=== PATIENT | female | born 1990 | race Caucasian/White ===

== ENCOUNTER 2017-07-27 12:41 | Emergency (ER) | payer BC, OTHER ==
[2017-07-27 12:52] VITALS: BP 111/64; PULSE 81; TEMP 98.5; BMI 25.6
--- NOTE | 2017-07-27 13:42 | PDOC ---
Post Exposure HPI - General Chief Complaint: Blood/Body Fluid Exposure SJR Stated Complaint: NEEDLE STICK Time Seen by Provider: 07/27/17 13:23 - History of Present Illness Initial Comments: 07/27/17 13:27 CHIEF COMPLAINT: needlestick HISTORY OF PRESENT ILLNESS: 27 yo F employee at [employer] presents to fast track s/p needlestick exposure. Patient states she had given a patient a sub Q injection and was going to recap the needle when the patient "just happened to push a tray away and I scratched myself with the needle." Patient reports the scratch being very superficial with "just a little blood" from a scrape to her thumb. Patient denies any infectious symptoms, including fever, chills, nausea, vomiting, diarrhea, and states she is sure she is UTD with her tetanus shot. Patient states she does not want PEP regimen started and just wants baseline labs to f/u with occupational health. PAST MEDICAL HISTORY: Denies past medical history FAMILY HISTORY: Denies SOCIAL HISTORY: Denies tobacco, alcohol, illicit drug use. SURGICAL HISTORY: Denies ALLERGIES: No known drug allergies REVIEW OF SYSTEMS General/Constitutional: Denies fever or chills. Denies weakness. HEENT: Denies change in vision. Denies ear pain or discharge. Denies sore throat. Cardiovascular: Denies chest pain or shortness of breath. Respiratory: Denies cough, wheezing. Gastrointestinal: Denies nausea, vomiting, diarrhea. Genitourinary: Denies dysuria, frequency, or change in urination. Musculoskeletal: Denies joint or muscle swelling or pain. Denies neck or back pain. Skin: "I scraped my thumb a little with the insulin needle." PHYSICAL EXAM General Appearance: Well-appearing, appropriately dressed. No apparent distress. HEENT: EOMI, PERRLA. No conjunctival pallor. No photophobia, scleral icterus. Respiratory/Chest: Lungs CTAB. Cardiovascular: RRR. S1, S2. Gastrointestinal/Abdominal: Normal bowel sounds. Abdomen soft, non-distended. No tenderness or rebound tenderness. No organomegaly, pulsatile mass, guarding , hernia, hepatomegaly, splenomegaly. Musculoskeletal/Extremities: Very superficial scratch to left thumb, no bleeding. Normal inspection. FROM of all extremities, normal capillary refill. Pelvis Stable. No CVA tenderness. No tenderness to extremities, pedal edema, swelling, erythema or deformity. Integumentary: Appropriate color, dry, warm. No cyanosis, erythema, jaundice or rash Neurologic: manager medicare II-XII intact. Fully oriented, alert. Appropriate mood/affect. Motor strength 5/5. No appreciable EOM palsy, facial droop or sensory deficit. 07/27/17 13:31 Past History - Past Medical History Allergies/Adverse Reactions: Allergies Allergy/AdvReac Type Severity Reaction Status Date / Time No Known Allergies Allergy Verified 07/27/17 12:52 Home Medications: Ambulatory Orders NK [No Known Home Medication] 04/06/16 COPD: No - Suicide/Smoking/Psychosocial Hx Smoking History: Never smoked Have you smoked in the past 12 months: No Information on smoking cessation initiated: No Hx Alcohol Use: No Drug/Substance Use Hx: No Substance Use Type: None *Physical Exam - Vital Signs Last Vital Signs Temp Pulse Resp BP Pulse Ox 98.5 F 81 17 111/64 100 07/27/17 12:49 07/27/17 12:49 07/27/17 12:49 07/27/17 12:49 07/27/17 12:49 Medical Decision Making - Medical Decision Making 07/27/17 13:42 27 yo F employee at [employer] presents to fast track s/p needlestick exposure. -HIV, Hep C, Hep B Patient refuses PEP regimen. Patient states she will f/u with occupational health for results. Advised patient of signs and symptoms for return to ER; patient verbalized understanding and agrees to plan. *DC/Admit/Observation/Transfer Diagnosis at time of Disposition: Employee exposure to body fluids - Discharge Dispostion Disposition: HOME Condition at time of disposition: Stable Admit: No - Referrals Referrals: Clarke Muhammad [Non Staff, Medical] - Sharda Clayton [Non Staff, Medical] - Km Carver MD [Non Staff, Medical] - - Patient Instructions Printed Discharge Instructions: How to Handle Body Fluid Exposure -- Healthcare Worker Additional Instructions: As discussed, please follow up with occupational health for lab results. If you develop any fever, chills, nightsweats, sore throat, abdominal pain, vomiting, diarrhea, or any new or worsening symptoms, please return to the ER. - Post Discharge Activity Forms/Work/School Notes: Back to Work
[2017-07-28 08:57] LABS: HBsAG SCREEN Negative (Negative); HEPATITIS B CORE ANTIBODY Negative (Negative)
== END 2017-07-27 14:09 | disposition home or self-care (01) ==
LOC: JERFT 12:41
DX: Z77.21 Contact with and (suspected) exposure to potentially hazardous body fluids (principal); S61.032A Puncture wound without foreign body of left thumb without damage to nail, initial encounter; W46.1XXA Contact with contaminated hypodermic needle, initial encounter; Y93.F9 Activity, other caregiving; Y92.238 Other place in hospital as the place of occurrence of the external cause; Y99.0 Civilian activity done for income or pay
CPT/HCPCS: 36415; 86704; 86803; 87340; 87389; 99281-25

== ENCOUNTER 2018-08-27 16:01 | Emergency (ER) | payer OTHER ==
[2018-08-27 16:16] VITALS: BP 127/85; PULSE 75; TEMP 98.5; BMI 23.8
[2018-08-27] MEDS ORDERED: HYDROCORTISONE 1% TOPICAL OINT 30 GM TUBE TP ONE (16:22)
--- NOTE | 2018-08-27 16:28 | PDOC ---
History of Present Illness - General Chief Complaint: Rash Stated Complaint: Rash Time Seen by Provider: 08/27/18 16:14 History Source: Patient Exam Limitations: No Limitations - History of Present Illness Initial Comments: 08/27/18 16:23 HISTORY OF PRESENT ILLNESS: This a 28-year-old woman with history of atopic dermatitis presents emergency department for evaluation of rash upper extremity starting yesterday. Patient reports pruritic rash bilateral upper extremities started last night. Patient talk or tingling last night which helped relieve some of the itching and the appearance of the rash. Patient presents emergency department for concerns of infectious etiology. No recent travel or sick contacts. PAST MEDICAL HISTORY: see HPI SURGICAL HISTORY: Denies ALLERGIES: No known drug allergies REVIEW OF SYSTEMS General/Constitutional: Denies fever or chills. Denies weakness, weight change. HEENT: Denies change in vision. Denies ear pain or discharge. Denies sore throat. Cardiovascular: Denies chest pain or shortness of breath. Respiratory: Denies cough, wheezing, or hemoptysis. Gastrointestinal: Denies nausea, vomiting, diarrhea or constipation. Denies rectal bleeding. Genitourinary: Denies dysuria, frequency, or change in urination. Musculoskeletal: Denies joint or muscle swelling or pain. Denies neck or back pain. Skin and breasts: rash to BUE. Neurologic: Denies headache, vertigo, loss of consciousness, or loss of sensation. Psychiatric: Denies depression or anxiety. Endocrine: Denies increased thirst. Denies abnormal weight change. Hematologic/Lymphatic: Denies anemia, easy bleeding, or history of blood clots. Allergic/Immunologic: Denies hives or skin allergy. Denies latex allergy. PHYSICAL EXAM General Appearance: Well-appearing, appropriately dressed. No apparent distress , no intoxication. HEENT: EOMI, PERRLA, normal ENT inspection, normal voice, TMs normal, pharynx normal. No conjunctival pallor. No photophobia, scleral icterus. Neck: Supple. Trachea midline. No tenderness, rigidity, carotid bruit, stridor , lymphadenopathy, or thyromegaly. Respiratory/Chest: Lungs CTAB. No shortness of breath, chest tenderness, respiratory distress, accessory muscle use. No crackles, rales, rhonchi, stridor , wheezing, dullness Cardiovascular: RRR. S1, S2. No JVD, murmur, bradycardia, tachycardia. Vascular Pulses: Dorsalis-Pedis (R): 2+, Dorsalis-Pedis (L): 2+ Gastrointestinal/Abdominal: Normal bowel sounds. Abdomen soft, non-distended. No tenderness or rebound tenderness. No organomegaly, pulsatile mass, guarding, hernia, hepatomegaly, splenomegaly. Lymphatic: No adenopathy, tenderness. Musculoskeletal/Extremities: Normal inspection. FROM of all extremities, normal capillary refill. Pelvis Stable. No CVA tenderness. No tenderness to extremities, pedal edema, swelling, erythema or deformity. Integumentary: Scattered maculopapular erythematous pruritic rash present to bilateral upper extremities. No rash present to trunk, face or lower extremities. Neurologic: senior applications engineer II-XII intact. Fully oriented, alert. Appropriate mood/affect. Motor strength 5/5. No appreciable EOM palsy, facial droop or sensory deficit. Past History - Past Medical History Allergies/Adverse Reactions: Allergies Allergy/AdvReac Type Severity Reaction Status Date / Time No Known Allergies Allergy Verified 08/27/18 16:13 Home Medications: Ambulatory Orders NK [No Known Home Medication] 04/06/16 COPD: No - Suicide/Smoking/Psychosocial Hx Smoking History: Never smoked Have you smoked in the past 12 months: No Hx Alcohol Use: No Drug/Substance Use Hx: No Substance Use Type: None *Physical Exam - Vital Signs Last Vital Signs Temp Pulse Resp BP Pulse Ox 98.5 F 75 18 127/85 99 08/27/18 16:14 08/27/18 16:14 08/27/18 16:14 08/27/18 16:14 08/27/18 16:14 Moderate Sedation - Procedure Monitoring Vital Signs: Procedure Monitoring Vital Signs Temperature 98.5 F 08/27/18 16:14 Pulse Rate 75 08/27/18 16:14 Respiratory Rate 18 08/27/18 16:14 Blood Pressure 127/85 08/27/18 16:14 O2 Sat by Pulse Oximetry (%) 99 08/27/18 16:14 Medical Decision Making - Medical Decision Making 08/27/18 16:29 A/P: 28-year-old woman with dermatitis Triamcinilone 0.5% cream apply to rash now Discharge home to follow-up with dermatology I discussed the physical exam findings, ancillary test results and final diagnoses with the patient. I answered all of the patient's questions. The patient was satisfied with the care received and felt comfortable with the discharge plan and treatment plan. The patient will call their primary care physician within 24 hours to arrange follow-up and will return to the Emergency Department with any new, persistent or worsening symptoms. *DC/Admit/Observation/Transfer Diagnosis at time of Disposition: Dermatitis - Discharge Dispostion Disposition: HOME Condition at time of disposition: Stable Decision to Admit order: No - Referrals Referrals: Jada Jeffries [Primary Care Provider] - Arlette Hoffman MD [Staff Physician] - - Patient Instructions Additional Instructions: Rest, keep cool and dry- avoid strenuous activity or hot /humid environments Less hot showers, no abrasive soaps May use heavy creams like Eucerin or Cetaphil to keep skin moist May apply Aveeno, calamine lotion, [id number] hydrocortisone creams as needed for symptoms May use Benadryl at night for antihistamine, Zyrtec/ Susi or Claritin for daytime antihistamine use to help with itching May use [id number] hydrocortisone cream on all areas except face Try to identify cause for rash and avoid exposures Followup with PMD in one week if no resolution Make appointment with sulfuric acid plant supervisor for evaluation when possible - Post Discharge Activity
[2018-08-27] MEDS ORDERED: TRIAMCINOLONE ACET 0.5% CREAM 15 GM TUBE TP ONE (16:33)
== END 2018-08-27 16:43 | disposition home or self-care (01) ==
LOC: JERFT 16:01
DX: L30.9 Dermatitis, unspecified (principal)
CPT/HCPCS: 99281-25